=== PATIENT | female | born 2005 | race Two or more races ===

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

== ENCOUNTER 2023-05-01 08:25 | Outpatient (CLI) | payer OTHER | END 2023-05-01 08:38 | disposition home or self-care (01) | LOC: SONOGRAMA 08:25 | PROVIDERS: ATTEND Obstetrics & Gynecology | DX: R10.2 Pelvic and perineal pain (principal); R10.30 Lower abdominal pain, unspecified ==